=== PATIENT | female | born 1935 | race Caucasian/White ===

== ENCOUNTER → 2021-02-25 | Outpatient (CLI) | payer MEDICARE, OTHER ==
[~2021-02-25] MED LIST: ACET500T68 PO; AMIT10TA PO; ASPI-630 PO; ATOR40TA59 PO; AZIT500T4 PO; BISA10SU55 RC; CLOP75TA PO; GADOTERATE 7.5 MMOL/15ML VIAL. IVP ONE; HYDR30CR74 RC; METO-239 PO; MIDO2.5T PO; NITR0.4T22 SL; PRAM0.255 PO; RANO500T2 PO
--- NOTE | 2021-02-25 14:49 | KCIC ---
MRI BRAIN WO+W Date: 02/25/2021 10:55 AM Indication: MULTIPLE SCLEROSIS/RIGHT HAND WEAKNESS/MEMORY IMPAIRMENT . 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 New RUE weakness and worsening memor loss. Comparison: None. Technique: Multiplanar multisequence MRI of the brain was performed with and without intravenous cont rast using the standard protocol. 14 cc clear scan of contrast was administered intravenously during the exam. Findings: No acute infarct. No acute or chronic hemorrhage. The ventricles are normal in size and configuration without hydrocephalus. Moderate scattered FLAIR hyperintensities in the subcortical and periventricu lar deep white matter, a nonspecific finding, most commonly seen with chronic small vessel ischemic d isease. Moderate cerebral volume loss. Right cerebellar chronic lacunar infarcts. Small area of left parietotemporal encephalomalacia. The scalp and calvarium are normal. The pituitary and sella are normal. No Chiari malformation. Mild incompletely characterized degenerative spondylosis of the visualized upper cervical spine. The visualized orbits and globes are normal. The visualized paranasal sinuses are clear. The mastoid air cells are clear. Normal flow voids within the vertebral, basilar, and internal carotid arteries indicating patency. IMPRESSION: 1. No acute infarct or hemorrhage. No mass or abnormal enhancement. 2. Small area of left parietotemporal encephalomalacia. Right cerebellar chronic lacunar infarcts. 3. Moderate scattered FLAIR hyperintensities in the subcortical and periventricular deep white matter , a nonspecific finding, most commonly seen with chronic small vessel ischemic disease. Moderate cere bral volume loss. Electronically signed by: Osbaldo Dorman MD (02/25/2021 2:46 PM) [id number]
== END ==
LOC: KCIC MRI 10:33
PROVIDERS: ATTEND Family Medicine
DX: I67.82 Cerebral ischemia (principal); I63.81 Other cerebral infarction due to occlusion or stenosis of small artery; G35 Multiple sclerosis; R29.898 Other symptoms and signs involving the musculoskeletal system; R41.3 Other amnesia; G93.89 Other specified disorders of brain
CPT/HCPCS: 70553; 82565; A9575